=== PATIENT | male | born 1995 | race Caucasian/White ===

== ENCOUNTER 2019-01-10 20:21 | Emergency (ER) | payer OTHER ==
[~2019-01-10] VITALS: Ht 185.4 cm; Wt 90.7 kg
[2019-01-10 21:23] LABS: BASO # 0.1 x10^3/uL (0.0-0.2); BASO % 1 % (0-3); EOS # 0.3 x10^3/uL (0.0-0.7); EOS % 3 % (0-3); HEMATOCRIT 44.2 % (39.0-53.0); HEMOGLOBIN 14.9 g/dL (13.0-17.5); LYMPH # 3.5 x10^3/uL (1.0-4.8); LYMPH % 37 % (24-48); MEAN CORPUSCULAR HEMOGLOBIN 31 pg (25-35); MEAN CORPUSCULAR HGB CONC 34 g/dL (31-37); MEAN CORPUSCULAR VOLUME 91 fL (79-100); MONO # 0.9 x10^3/uL (0.0-1.1); MONO % 9 % (0-9); NEUT # 4.6 x10^3uL (1.8-7.7); NEUT % 49 % (31-73); PLATELET COUNT 200 x10^3/uL (140-400); RED BLOOD COUNT 4.84 x10^6/uL (4.30-5.70); RED CELL DISTRIBUTION WIDTH 13.5 % (11.5-14.5); WHITE BLOOD COUNT 9.3 x10^3/uL (4.0-11.0)
[2019-01-10] MEDS ORDERED: IV NORMAL SALINE 1000ML BAG 1,000 ML IV ONE (21:30)
[2019-01-10 21:33] LABS: CREATININE 1.2 mg/dL (0.7-1.3); GFR 73.8; POTASSIUM 3.4 mmol/L (3.5-5.1)
[2019-01-10] MEDS ORDERED: LIDOCAINE 1% Multi-Dose 20 ML VIAL. INJ ONE (22:00)
[2019-01-10] MEDS ORDERED: KETOROLAC 30 MG/ML VIAL. IV ONE (22:30)
--- NOTE | 2019-01-10 22:54 | PHYS DOC ---
Past Medical History Past Medical History: GERD, Other Additional Past Medical Histor: HIATAL HERNIA (AMY VASQUEZ MD) Past Surgical History: Other Additional Past Surgical Histo: RIGHT SHOULDER (AMY VASQUEZ MD) Alcohol Use: Occasionally Drug Use: None (AMY VASQUEZ MD) Adult General Chief Complaint Chief Complaint: ANIMAL BITE HPI HPI Patient is a 23 year old male who presents with complaining of syncope/seizure after dog bite. Patient states his neighbor dog attacked him with a bite in left upper thigh with a large laceration of his thigh and he had a syncope/seizure activity that usually happens to him after he sees blood or getting severe pain. Patient denies focal neuro deficit and headache and complaining of pain in left thigh. Since up-to-date with tetanus immunization. (AMY VASQUEZ MD) Review of Systems Review of Systems Constitutional: Denies fever or chills [] Eyes: Denies change in visual acuity, redness, or eye pain [] HENT: Denies nasal congestion or sore throat [] Respiratory: Denies cough or shortness of breath [] Cardiovascular: No additional information not addressed in HPI [] GI: Denies abdominal pain, nausea, vomiting, bloody stools or diarrhea [] : Denies dysuria or hematuria [] Musculoskeletal: Denies back pain or joint pain [] Integument: Denies rash or skin lesions [] Neurologic: Denies headache, focal weakness or sensory changes [] Endocrine: Denies polyuria or polydipsia [] All other systems were reviewed and found to be within normal limits, except as documented in this note. (AMY VASQUEZ MD) Current Medications Current Medications Current Medications Medications (Trade) Dose Ordered Sig/Armin Start Time Stop Time Status Last Admin Dose Admin Cefazolin Sodium 50 ml @ 100 mls/hr 1X ONCE 01/10/19 22:00 01/10/19 22:29 DC Ketorolac Tromethamine (Toradol 30mg Vial) 30 mg 1X ONCE 01/10/19 22:30 01/10/19 22:31 DC 01/10/19 22:30 30 MG Lidocaine HCl (Lidocaine 1% 20ml Vial) 20 ml 1X ONCE 01/10/19 22:00 01/10/19 22:01 DC 01/10/19 22:25 20 ML Lorazepam (Ativan) 1 mg 1X ONCE 01/10/19 22:00 01/10/19 22:01 DC 01/10/19 22:27 1 MG Sodium Chloride 1,000 ml @ 1,000 mls/hr 1X ONCE 01/10/19 21:30 01/10/19 22:29 DC 01/10/19 21:22 1,000 MLS/HR ([facility]) Allergies Allergies Allergies Coded Allergies Type Severity Reaction Last Updated Verified No Known Drug Allergies 01/10/19 No ([facility]) Physical Exam Physical Exam Constitutional: Well developed, well nourished, mild distress, non-toxic appear ance. [] HENT: Normocephalic, atraumatic Eyes: PERRLA, EOMI, conjunctiva normal, no discharge. [] Neck: Normal range of motion, no tenderness, supple, no stridor. [] Cardiovascular:Heart rate regular rhythm, no murmur [] Lungs & Thorax: Bilateral breath sounds clear to auscultation [] Abdomen: Bowel sounds normal, soft, no tenderness, no masses, no pulsatile masses. [] Skin: Warm, dry, no erythema, no rash. [] Back: No tenderness, no CVA tenderness. [] Extremities: 5 cm oblique deep laceration of left upper thigh in anterior site without active bleeding, no cyanosis, no clubbing, ROM intact, no edema. [] Neurologic: Alert and oriented X 3, normal motor function, normal sensory function, no focal deficits noted. [] Psychologic: Affect normal, judgement normal, mood normal. [] (AMY VASQUEZ MD) Current Patient Data Vital Signs Vital Signs Date Time Temp Pulse Resp B/P (MAP) Pulse Ox O2 Delivery O2 Flow Rate FiO2 01/10/19 21:09 98.5 85 20 107/63 (78) 100 Room Air 98.5 ([facility]) Lab Values Laboratory Tests Test 01/10/19 21:00 White Blood Count 9.3 x10^3/uL (4.0-11.0) Red Blood Count 4.84 x10^6/uL (4.30-5.70) Hemoglobin 14.9 g/dL (13.0-17.5) Hematocrit 44.2 % (39.0-53.0) Mean Corpuscular Volume 91 fL (79-100) Mean Corpuscular Hemoglobin 31 pg (25-35) Mean Corpuscular Hemoglobin Concent 34 g/dL (31-37) Red Cell Distribution Width 13.5 % (11.5-14.5) Platelet Count 200 x10^3/uL (140-400) Neutrophils (%) (Auto) 49 % (31-73) Lymphocytes (%) (Auto) 37 % (24-48) Monocytes (%) (Auto) 9 % (0-9) Eosinophils (%) (Auto) 3 % (0-3) Basophils (%) (Auto) 1 % (0-3) Neutrophils # (Auto) 4.6 x10^3uL (1.8-7.7) Lymphocytes # (Auto) 3.5 x10^3/uL (1.0-4.8) Monocytes # (Auto) 0.9 x10^3/uL (0.0-1.1) Eosinophils # (Auto) 0.3 x10^3/uL (0.0-0.7) Basophils # (Auto) 0.1 x10^3/uL (0.0-0.2) Sodium Level 138 mmol/L (136-145) Potassium Level 3.4 mmol/L (3.5-5.1) L Chloride Level 103 mmol/L (98-107) Carbon Dioxide Level 27 mmol/L (21-32) Anion Gap 8 (6-14) Blood Urea Nitrogen 17 mg/dL (8-26) Creatinine 1.2 mg/dL (0.7-1.3) Estimated GFR (Cockcroft-Gault) 73.8 Glucose Level 132 mg/dL (70-99) H Calcium Level 9.0 mg/dL (8.5-10.1) Laboratory Tests 01/10/19 21:00 Laboratory Tests 01/10/19 21:00 ([facility]) EKG EKG [] (AMY VASQUEZ MD) Radiology/Procedures Radiology/Procedures [] (AMY VASQUEZ MD) Course & Med Decision Making Course & Med Decision Making Pertinent Labs reviewed. (See chart for details) discharge: I've spoken with the patient and/or caregivers. I've explained the patient's condition, diagnosis and treatment plan based on information available to me at this time. I've answered the patient's and/or caregivers questions and addressed any concerns. The patient and/or caregivers have a good understanding the patient's diagnosis, condition and treatment plan as can be expected at this point. Vital signs have been stabilized. The patient's condition is stable for discharge from the emergency department. The patient will pursue further outpatient evaluation with her primary care provider or other designated consulting physician as outlined in the discharge instructions. Patient and/or caregivers are agreeable to this plan of care and follow-up instructions have been explained in detail. The patient and/or caregivers have received these instructions in written format and expressed understanding of these discharge instructions. The patient and her caregivers are aware that if any significant change in condition or worsening of symptoms should prompt him to immediately return to this of the closest emergency depar tment. If an emergent department is not readily available I would encourage him to call 911. (AMY VASQUEZ MD) Dragon Disclaimer Dragon Disclaimer This electronic medical record was generated, in whole or in part, using a voice recognition dictation system. (AMY VASQUEZ MD) Laceration Repair Lac Repair Indication: [] Procedure: The patient was placed in the appropriate position and anesthesia around the [LAC WAS/WERE] [ANESTHESIA]. The area was then [CLEANSED/DEBRIDED]. The laceration was [LAC CLOSURE]. [ADDITIONAL LACS] The wound area was then dressed with [WOUND COVERING]. Total repaired wound length: [TOTAL REPAIR LENGTH]. Other Items: [OTHER ITEMS] The patient tolerated the procedure [TOLERATED]. Complications: [COMPLICATIONS]. (AMY VASQUEZ MD) Lac Repair Indication: L thigh wound from dog bite Procedure: The patient was placed in the appropriate position and anesthesia around the laceration was given with 5mls of 1% lidocaine. The area was then cleansed and irrigated with shurclens and saline. The laceration was closed with 4-0 nylon interrupted 5 sutures. The wound area was then dressed with nonstick gauze and carolann wrap. Total repaired wound length: 5cm Other Items: The patient tolerated the procedure well. Complications: none (V[facility] GUERRA) Departure Departure Impression: Primary Impression: Vasovagal syncope Additional Impressions: Dog bite of left thigh Laceration of left thigh Hypokalemia Disposition: HOME, SELF-CARE (at 2315) Condition: IMPROVED Referrals: NO PCP (PCP) Patient Instructions: Animal Bite, Hypokalemia, Sutured Wound Care, Syncope Additional Instructions: Drink plenty of liquids Follow-up with your primary care physician in 3-5 days Return to ER if not getting better Scripts Naproxen (NAPROSYN) 500 Mg Tablet 1 TAB PO BID for pain, #20 TAB Prov: AMY VASQUEZ MD 01/10/19 Cephalexin (KEFLEX) 500 Mg Capsule 2 CAP PO Q12HR, #40 CAP Prov: AMY VASQUEZ MD 01/10/19 Problem Qualifiers Additional Impressions: Dog bite of left thigh Encounter type: subsequent encounter Qualified Codes: S71.152D - Open bite, left thigh, subsequent encounter; W54.0XXD - Bitten by dog, subsequent encounter Laceration of left thigh Encounter type: subsequent encounter Qualified Codes: S71.112D - Laceration without foreign body, left thigh, subsequent encounter AMY VASQUEZ MD Jan 10, 2019 22:54 [facility] Jan 10, 2019 22:59
[2019-01-10] MEDS ORDERED: NAPR-683 PO (23:17)
[2019-01-10] MEDS ORDERED: CEPH-264 PO (23:17)
[2019-01-11] VITALS: BP 119/69
== END 2019-01-11 | disposition home or self-care (01) ==
LOC: ER 20:21
DX: S71.112A Laceration without foreign body, left thigh, initial encounter (principal); S71.152A Open bite, left thigh, initial encounter; E87.6 Hypokalemia; R55 Syncope and collapse; R56.9 Unspecified convulsions; K21.9 Gastro-esophageal reflux disease without esophagitis; W54.0XXA Bitten by dog, initial encounter; Y93.89 Activity, other specified; Y92.89 Other specified places as the place of occurrence of the external cause; Y99.8 Other external cause status
CPT/HCPCS: 12002; 36415; 80048; 85025; 96361; 96365; 96375; 99284; J0690; J1885; J2060; J7030